=== PATIENT | female | born 1960 | race Caucasian/White ===

== ENCOUNTER 2017-04-22 16:56 | Emergency (ER) | payer OTHER ==
[~2017-04-22] VITALS: Ht 165.1 cm; Wt 73.2 kg
[2017-04-22] MEDS ORDERED: OMEP20 PO (17:03)
[2017-04-22 18:30] VITALS: BP 138/78
[2017-04-22] MEDS ORDERED: KETOROLAC TROMETHAMINE 30 MG/ML VIAL IM ONE (18:45)
== END 2017-04-22 19:42 | disposition home or self-care (01) ==
LOC: EMS 17:01
DX: M77.9 Enthesopathy, unspecified (principal); K21.9 Gastro-esophageal reflux disease without esophagitis
CPT/HCPCS: 73610; 96372; 99284; J1885

== ENCOUNTER 2018-08-07 08:03 | Emergency (ER) | payer OTHER ==
[~2018-08-07] VITALS: Ht 157.5 cm; Wt 77.3 kg
[~2018-08-07 08:03] MED LIST: OMEP20 PO
[2018-08-07] MEDS ORDERED: AMOX TR/POT CLAV 875 MG/125 MG TABLET PO ONE (09:30)
[2018-08-07] MEDS ORDERED: PERTUSS(ACELL),DIPH,TET VAC/PF 0.5 ML VIAL IM ONE (09:30)
[2018-08-07 10:09] VITALS: BP 141/80
== END 2018-08-07 10:59 | disposition home or self-care (01) ==
LOC: EMS 08:06
DX: S51.811A Laceration without foreign body of right forearm, initial encounter (principal); S70.312A Abrasion, left thigh, initial encounter; S70.311A Abrasion, right thigh, initial encounter; K21.9 Gastro-esophageal reflux disease without esophagitis; Z90.49 Acquired absence of other specified parts of digestive tract; W55.01XA Bitten by cat, initial encounter; Y93.89 Activity, other specified; Y92.89 Other specified places as the place of occurrence of the external cause; Y99.8 Other external cause status
CPT/HCPCS: 90471; 90715